=== PATIENT | male | born 1965 | race Two or more races ===

== ENCOUNTER 2021-04-06 21:27 | Emergency (ER) | payer OTHER ==
[~2021-04-06] VITALS: Ht 172.7 cm; Wt 97.5 kg
[2021-04-06] MEDS ORDERED: GLUMETZA500 MG (21:48)
[2021-04-06] MEDS ORDERED: AMLODIPINE BESY10 MG (21:49)
[2021-04-06] MEDS ORDERED: [UNRECOGNIZED DRUG - OTHER] (21:49)
[2021-04-06] MEDS ORDERED: PROAIR HFA8.5 GM (21:50)
[2021-04-06] MEDS ORDERED: LODINE300 MG (21:52)
[2021-04-06] MEDS ORDERED: CARAFATE1 GM (21:53)
[2021-04-06] MEDS ORDERED: CHLORZOXAZONE (21:53)
[2021-04-06] MEDS ORDERED: XOPENEX0.63 MG/3 IH (23:30)
[2021-04-06] MEDS ORDERED: NORFLEX100MG PO (23:30)
== END 2021-04-07 00:26 | disposition home or self-care (01) ==
LOC: ER 21:27
DX: M62.838 Other muscle spasm (principal); M54.5 Low back pain